=== PATIENT | female | born 1990 | race Caucasian/White ===

== ENCOUNTER 2016-11-12 14:11 | Emergency (ER) | payer MEDICARE ==
[~2016-11-12] VITALS: Wt 63.5 kg
[~2016-11-12 14:11] MED LIST: DIVALPROEX SOD250 MG PO; FLONASE ALLERG9.9 ML NAS; LAMICTAL25 MG PO; PREDNISONE10 MG PO; ROBITUSSIN AC 110 ML PO; SEROQUEL25 MG PO; WELLBUTRIN SR150 MG PO
[2016-11-12] MEDS ORDERED: ESTRADIOL1 MG PO (14:21)
[2016-11-12] MEDS ORDERED: DIVALPROEX SOD500 MG PO (14:21)
[2016-11-12] MEDS ORDERED: OLANZAPINE10 MG PO (14:21)
[2016-11-12] MEDS ORDERED: BUSPIRONE HCL7.5 MG PO (14:22)
[2016-11-12 14:56] LABS: BASO # 0.1 10*3/uL (0.0-0.1); BASO % 0.6 % (0.0-1.0); EOS # 0.1 10*3/uL (0.0-0.4); EOS % 1.4 % (1.0-4.0); HEMATOCRIT 43.8 % (37.0-47.0); HEMOGLOBIN 14.7 g/dl (12.0-16.0); IG # 0.1 10*3/uL (0.0-0.1); LYMPH # 2.4 10*3/uL (1.3-4.4); LYMPH % 27.7 % (27.0-41.0); MEAN CELL VOLUME 88.3 fl (81.0-99.0); MEAN CORPUSCULAR HGB 29.6 pg (27.0-31.0); MEAN CORPUSCULAR HGB CONC 33.6 g/dl (33.0-37.0); MEAN PLATELET VOLUME 10.6 fl (9.6-12.3); MONO # 0.7 10*3/uL (0.1-1.0); MONO % 8.5 % (3.0-9.0); NEUT # 5.2 10*3/uL (2.3-7.9); PLATELET COUNT AUTOMATED 196 10*3/uL (130-400); RED BLOOD COUNT 4.96 10*6/uL (4.10-5.10); RED CELL DISTRI WIDTH 12.1 % (0-14.5); WHITE BLOOD COUNT 8.5 10*3/uL (4.8-10.8)
[2016-11-12 14:59] LABS: BILIRUBIN NEGATIVE (NEGATIVE); BLOOD 3+ (NEGATIVE); CLARITY CLEAR (CLEAR); COLOR YELLOW (YELLOW); GLUCOSE NEGATIVE (NEGATIVE); KETONE NEGATIVE (NEGATIVE); LEUKO ESTERASE NEGATIVE (NEGATIVE); NITRITE NEGATIVE (NEGATIVE); PROTEIN NEGATIVE (NEGATIVE); SPECIFIC GRAVITY <= 1.005 (1.005-1.030); UROBILINOGEN 0.2 E.U./dl (0.2-1.0)
[2016-11-12 15:06] LABS: URINE REFLEX COMMENT YES (NO)
[2016-11-12 15:07] LABS: BACTERIA TRACE
[2016-11-12 15:08] LABS: RBC 51-100 rbc/hpf (0-2); WBC 0-2 wbc/hpf (0-5)
[2016-11-12 15:14] LABS: ALBUMIN 3.7 gm/dl (3.1-4.5); ALKALINE PHOSPHATASE 56 U/L (45-117); BUN 11 mg/dl (7-24); CARBON DIOXIDE 28 mmol/L (21-32); CHLORIDE 107 mmol/L (98-107); EST GLOM FILT AFRICAN AMERICAN > 60 ml/min; GLUCOSE 88 mg/dL (65-99); POTASSIUM 3.6 mmol/L (3.5-5.1); SGOT/AST 13 IU/L (3-35); SGPT/ALT 14 U/L (12-78); SODIUM 141 mmol/L (136-145); TOTAL PROTEIN 7.2 gm/dL (6.4-8.2)
[2016-11-12 15:16] LABS: BILIRUBIN, TOTAL 1.6 mg/dl (0.2-1.0)
[2016-11-12] MEDS ORDERED: ANAPROX DS550 MG PO (17:28)
[2016-11-12] MEDS ORDERED: ZOFRAN ODT4 MG SL (17:30)
== END 2016-11-12 17:35 | disposition home or self-care (01) ==
LOC: ED 14:11
PROVIDERS: Physician Assistant
DX: N92.1 Excessive and frequent menstruation with irregular cycle (principal); R10.13 Epigastric pain; R11.2 Nausea with vomiting, unspecified; F17.200 Nicotine dependence, unspecified, uncomplicated; Z79.899 Other long term (current) drug therapy

== ENCOUNTER 2017-05-15 11:32 | Emergency (ER) | payer MEDICARE ==
[~2017-05-15] VITALS: Ht 162.5 cm; Wt 68.0 kg
[~2017-05-15 11:32] MED LIST changes: +ANAPROX DS550 MG PO; +BUSPIRONE HCL7.5 MG PO; +DIVALPROEX SOD500 MG PO; +ESTRADIOL1 MG PO; +OLANZAPINE10 MG PO; +ZOFRAN ODT4 MG SL
== END 2017-05-15 13:15 | disposition left against medical advice (07) ==
LOC: ED 11:32
DX: M25.572 Pain in left ankle and joints of left foot (principal); M79.672 Pain in left foot; Z79.899 Other long term (current) drug therapy

== ENCOUNTER 2018-12-29 08:48 | Emergency (ER) | payer MEDICARE ==
[~2018-12-29] VITALS: Ht 160 cm; Wt 77.6 kg
[2018-12-29] MEDS ORDERED: MEDROL DOSEPAK4 MG PO (09:38)
== END 2018-12-29 10:15 | disposition home or self-care (01) ==
LOC: ED 08:48
DX: L25.9 Unspecified contact dermatitis, unspecified cause (principal); Z79.899 Other long term (current) drug therapy

== ENCOUNTER 2020-01-09 16:46 | Emergency (ER) | payer MEDICARE ==
[~2020-01-09] VITALS: Wt 68.9 kg
[~2020-01-09 16:46] MED LIST changes: +MEDROL DOSEPAK4 MG PO
[2020-01-09 17:42] LABS: BASO % 0.4 % (0.0-1.0); EOS # 0.1 10*3/uL (0.0-0.4); EOS % 0.9 % (1.0-4.0); HEMATOCRIT 40.6 % (37.0-47.0); LYMPH % 21.3 % (27.0-41.0); MEAN CELL VOLUME 88.3 fl (81.0-99.0); MEAN CORPUSCULAR HGB 29.8 pg (27.0-31.0); MEAN CORPUSCULAR HGB CONC 33.7 g/dl (33.0-37.0); MEAN PLATELET VOLUME 9.6 fl (9.6-12.3); MONO # 0.8 10*3/uL (0.1-1.0); MONO % 8.8 % (3.0-9.0); NEUT # 6.5 10*3/uL (2.3-7.9); NEUT % 68.3 % (47.0-73.0); PLATELET COUNT AUTOMATED 227 10*3/uL (130-400); RED CELL DISTRI WIDTH 12.8 % (0-14.5); WHITE BLOOD COUNT 9.6 10*3/uL (4.8-10.8)
[2020-01-09 17:45] LABS: BILIRUBIN NEGATIVE; BLOOD NEGATIVE (NEGATIVE); CLARITY CLOUDY (CLEAR); COLOR YELLOW (YELLOW); GLUCOSE NEGATIVE; KETONE TRACE; LEUKO ESTERASE 1+ (NEGATIVE); NITRITE NEGATIVE (NEGATIVE); PH 5.5 (4.5-8.0); SPECIFIC GRAVITY > 1.030 (1.001-1.030)
[2020-01-09 17:54] LABS: BACTERIA 1+; EPITHELIAL CELLS 16-20; MUCOUS 1+
[2020-01-09 17:57] LABS: ALBUMIN 3.9 gm/dl (3.1-4.5); ALKALINE PHOSPHATASE 92 U/L (45-117); BUN 12 mg/dl (7-24); CHLORIDE 107 mmol/L (98-107); CREATININE 0.85 mg/dL (0.55-1.02); LIPASE 62 U/L (73-393); POTASSIUM 3.8 mmol/L (3.5-5.1); SGOT/AST 16 IU/L (3-35); SGPT/ALT 24 U/L (12-78); SODIUM 139 mmol/L (136-145); TOTAL PROTEIN 7.7 gm/dL (6.4-8.2)
[2020-01-09] MEDS ORDERED: PRILOSEC20 M1 PO (20:14)
[2020-01-09] MEDS ORDERED: KEFLEX500 M1 PO (20:14)
== END 2020-01-09 20:19 | disposition home or self-care (01) ==
LOC: ED 16:46
PROVIDERS: Physician Assistant
DX: K57.90 Diverticulosis of intestine, part unspecified, without perforation or abscess without bleeding (principal); N39.0 Urinary tract infection, site not specified; N83.201 Unspecified ovarian cyst, right side; Z79.899 Other long term (current) drug therapy

== ENCOUNTER 2020-01-19 11:40 | Emergency (ER) | payer MEDICARE ==
[~2020-01-19] VITALS: Ht 162.5 cm; Wt 68.9 kg
[~2020-01-19 11:40] MED LIST changes: +KEFLEX500 M1 PO; +PRILOSEC20 M1 PO
[2020-01-19 12:13] LABS: BASO % 0.4 % (0.0-1.0); EOS % 0.4 % (1.0-4.0); HEMATOCRIT 45.3 % (37.0-47.0); LYMPH # 1.6 10*3/uL (1.3-4.4); LYMPH % 16.9 % (27.0-41.0); MEAN CELL VOLUME 91.3 fl (81.0-99.0); MEAN CORPUSCULAR HGB 30.2 pg (27.0-31.0); MEAN CORPUSCULAR HGB CONC 33.1 g/dl (33.0-37.0); MEAN PLATELET VOLUME 9.6 fl (9.6-12.3); MONO # 0.7 10*3/uL (0.1-1.0); MONO % 7.2 % (3.0-9.0); NEUT # 6.9 10*3/uL (2.3-7.9); NEUT % 74.7 % (47.0-73.0); PLATELET COUNT AUTOMATED 247 10*3/uL (130-400); RED BLOOD COUNT 4.96 10*6/uL (4.10-5.10); RED CELL DISTRI WIDTH 12.9 % (0-14.5); WHITE BLOOD COUNT 9.2 10*3/uL (4.8-10.8)
[2020-01-19 12:28] LABS: ALKALINE PHOSPHATASE 98 U/L (45-117); BUN 11 mg/dl (7-24); CHLORIDE 106 mmol/L (98-107); CREATININE 0.74 mg/dL (0.55-1.02); LIPASE 55 U/L (73-393); POTASSIUM 3.9 mmol/L (3.5-5.1); SGOT/AST 8 IU/L (3-35); SGPT/ALT 19 U/L (12-78); SODIUM 137 mmol/L (136-145); TOTAL PROTEIN 7.7 gm/dL (6.4-8.2)
[2020-01-19 14:18] LABS: BILIRUBIN NEGATIVE; BLOOD NEGATIVE (NEGATIVE); CLARITY CLEAR (CLEAR); COLOR YELLOW (YELLOW); GLUCOSE NEGATIVE; KETONE NEGATIVE; LEUKO ESTERASE 1+ (NEGATIVE); MUCOUS TRACE; NITRITE NEGATIVE (NEGATIVE); PH 6.5 (4.5-8.0); SPECIFIC GRAVITY 1.025 (1.001-1.030)
== END 2020-01-19 14:43 | disposition home or self-care (01) ==
LOC: ED 11:40
PROVIDERS: Emergency Medicine
DX: R10.32 Left lower quadrant pain (principal); F31.9 Bipolar disorder, unspecified; F17.200 Nicotine dependence, unspecified, uncomplicated; Z79.2 Long term (current) use of antibiotics; Z79.899 Other long term (current) drug therapy; Z98.890 Other specified postprocedural states; Z90.49 Acquired absence of other specified parts of digestive tract